=== PATIENT | male | born 1980 | race Caucasian/White ===

== ENCOUNTER 2020-05-28 08:24 | Outpatient (REF) | payer OTHER, SELFPAY ==
--- NOTE | 2020-05-28 | US_ITS ---
EXAMINATION: US RETROPERITONEAL LIMITED (RENAL ONLY) CLINICAL INFORMATION: Abdominal pain. History of urinary calculi. COMPARISON: CT abdomen and pelvis 01/15/2014. Ultrasound abdomen 05/25/2010. TECHNIQUE: Real-time imaging of the kidneys. FINDINGS: RIGHT KIDNEY: 12.4 x 6.1 x 6.6 cm (SAG x AP x TRV). The kidney is normal in size, nodular contour, and echogenicity. Renal cortical thickness is normal. No calculi or focal parenchymal lesions. No hydronephrosis. LEFT KIDNEY: 13.5 x 6.1 x 5.8 cm (SAG x AP x TRV). The kidney is normal in size, nodular contour, and echogenicity. Renal cortical thickness is normal. No calculi or focal parenchymal lesions. No hydronephrosis. US/US renal BI IMPRESSION: Bilateral nodular renal contour. No echogenic stones or hydronephrosis.
== END 2020-05-28 08:25 | disposition home or self-care (01) ==
LOC: HO.US 08:24
PROVIDERS: PCP Internal Medicine; Visit Provider Internal Medicine
DX: R10.9 Unspecified abdominal pain (principal); Z87.442 Personal history of urinary calculi
CPT/HCPCS: 76775

== ENCOUNTER 2023-11-29 09:35 | Outpatient (REF) | payer OTHER, SELFPAY ==
[2023-11-29 12:14] LABS: Anion Gap 11 (12-20); Blood Urea Nitrogen 13 mg/dL (9-16); Calcium 9.8 mg/dL (8.4-10.2); Carbon Dioxide 29 mmol/L (22-29); Chloride 101 mmol/L (96-108); Estimated Glomerular Filt Rate > 60; Glucose Random 107 mg/dL (60-115); Potassium 4.2 mmol/L (3.3-5.1); Sodium 137 mmol/L (135-145)
== END 2023-11-29 09:36 | disposition home or self-care (01) ==
LOC: HO.HHCL 09:35
PROVIDERS: Visit Provider Internal Medicine Geriatric Medicine
DX: I10 Essential (primary) hypertension (principal)
CPT/HCPCS: 36415; 80048

== ENCOUNTER 2024-02-28 08:13 | Outpatient (REF) | payer OTHER, SELFPAY ==
[2024-02-28 12:33] LABS: Estimated Average Glucose 123 mg/dL; Hemoglobin A1c % 5.9 % (<6.0)
[2024-02-28 12:37] LABS: Alanine Aminotransferase 45 U/L (0-40); Albumin Level 4.2 g/dL (3.5-5.0); Alkaline Phosphatase 96 U/L (39-117); Anion Gap 11 (12-20); Aspartate Amino Transferase 35 U/L (5-37); Bilirubin Total 0.4 mg/dL (0.0-1.0); Blood Urea Nitrogen 17 mg/dL (9-16); Calcium 9.6 mg/dL (8.4-10.2); Carbon Dioxide 31 mmol/L (22-29); Chloride 102 mmol/L (96-108); Cholesterol 177 mg/dL (<200); Estimated Glomerular Filt Rate > 60; Glucose Random 121 mg/dL (60-115); HDL Cholesterol 30 mg/dL (>40); LDL Cholesterol Calculated 122 mg/dL (<100); Potassium 4.2 mmol/L (3.3-5.1); Sodium 140 mmol/L (135-145); Triglycerides 128 mg/dL (<150)
[2024-02-28 12:38] LABS: TSH reflex Free T4 1.17 uIU/mL (0.32-4.0); Vitamin D 25-OH Total 78.1 ng/mL (>30)
[2024-02-28 13:04] LABS: Reflex LDLD? No
== END 2024-02-28 08:14 | disposition home or self-care (01) ==
LOC: HO.HHCL 08:13
PROVIDERS: Visit Provider Internal Medicine
DX: E66.01 Morbid (severe) obesity due to excess calories (principal); I10 Essential (primary) hypertension; R73.01 Impaired fasting glucose
CPT/HCPCS: 36415; 80053; 80061; 82306; 83036; 84443

== ENCOUNTER 2024-09-07 19:09 | Emergency (ER) | payer OTHER, SELFPAY ==
--- NOTE | ~2024-09-07 | CT_ITS ---
CLINICAL HISTORY: LLQ abdominal pain. ?stone +L CVAT CT abdomen and pelvis without contrast Comparison: None Findings: No consolidation or effusion. Spleen, adrenal glands, pancreas, gallbladder and liver are unremarkable. Multiple nonobstructing small right renal calculi. No right-sided hydronephrosis. Mild left hydroureteronephrosis and mild left perinephric stranding. At both ureterovesical junctions there are punctate 1 mm calcifications. Urinary bladder is decompressed. No bowel obstruction, pneumoperitoneum, or pneumatosis. Pelvic contents unremarkable. No acute fracture. IMPRESSION: 1. Mild left hydroureteronephrosis and 1 mm calcification of the left ureterovesical junction. 2. 1 mm calcification in the right ureterovesical junction, however no right-sided hydroureteronephrosis. This stone could be either impacted in the ureterovesicular junction or dependent in the urinary bladder. This document has been electronically signed by: Brant Jaime MD on 09/07/2024 20:08:47
[2024-09-07 19:13] VITALS: BP 144/79; PULSE 77; RESP 18; TEMP 36.5; O2SAT 95; BMI 42.6
--- NOTE | 2024-09-07 19:13 | ED_ITS ---
HPI - Abdominal Pain General Chief Complaint: Abdominal Pain Stated Complaint: left lower quad pain Time Seen by Provider: 09/07/24 20:30 Related Data Previous Rx's ?Medication ?Instructions ?Recorded tamsulosin 0.4 mg capsule (Flomax) 0.4 mg PO DAILY #7 caps 09/07/24 Allergies Allergy/AdvReac Type Severity Reaction Status Date / Time No Known Allergies Allergy Verified 09/07/24 19:14 [facility] Social History Social History Smoked in Last 30 Days: No Use of substances other than those prescribed or required for medical reasons: No Advance Directives: No Advance Directives Information Provided: No Do you have a plan to hurt others: No Plan Physical Exam ED Vital Signs: BMI result Body Mass Index 42.6 Course Course Course Narrative: This is a Rapid Medical Exam performed in triage by Marina Palmer PA-C. Full HPI, ROS and PE to be performed by primary ED provider. 43-year-old male PMHx renal stones presenting to the ED c/o L sided abdominal pain x1 hr. States pain feels like prior stones. Denies N/V/D, urinary sx, fever, injury PE: abdomen soft w/LLQ ttp, +L CVAT, no rebound or guarding Plan: labs, UA, CTAP Medical Decision Making Lab Data 09/07/24 19:43 09/07/24 19:43 Labs: Lab Results 09/07/24 Range/Units 19:43 WBC 10.5 (4.8-10.8) X10*3/uL RBC 4.90 (4.60-5.80) X10*6/uL Hgb 14.6 (14.0-18.0) g/dl Hct 42.2 (42.0-52.0) % MCV 86.1 (80.0-98.0) fL MCH 29.8 (27.0-33.0) pg MCHC 34.6 (31.0-36.0) g/dl RDW 13.2 (11.0-16.0) % Plt Count 175 (160-400) X10*3/uL MPV 10.4 (9.4-12.4) fL Immature Gran % (Auto) 0.4 (0.0-0.4) % Neut % (Auto) 55.1 (45-73) % Lymph % (Auto) 33.1 (20-40) % [place] % (Auto) 9.2 (2-11) % Eos % (Auto) 1.6 (0-4) % Baso % (Auto) 0.6 (0-2) % Lymph # (Auto) 3.5 (1.2-4.9) X10*3/uL [place] # (Auto) 1.0 (0.1-1.2) X10*3/uL Eos # (Auto) 0.2 (0.0-0.4) X10*3/uL Baso # (Auto) 0.1 (0.0-0.2) X10*3/uL Abs Immat Gran (auto) 0.04 H (0.00-0.03) X10*3/uL Absolute Neuts (auto) 5.8 (2.0-8.3) x10*3/uL Absolute Nucleated RBC 0.000 (0.0-0.012) X10*3/uL Nucleated RBC % (auto) 0.0 (0.0-0.2) /100WBC Sodium 139 (135-145) mmol/L Potassium 3.8 (3.3-5.1) mmol/L Chloride 105 (96-108) mmol/L Carbon Dioxide 24 (22-29) mmol/L Anion Gap 14 (12-20) BUN 17 H (9-16) mg/dL Creatinine 0.79 (0.5-1.4) mg/dL Estim Creat Clear Calc 145.4 Estimated GFR > 60 Random Glucose 104 (60-115) mg/dL Calcium 9.2 (8.4-10.2) mg/dL Magnesium 2.1 (1.6-2.6) mg/dL Total Bilirubin 0.4 (0.0-1.0) mg/dL Direct Bilirubin 0.1 (0.0-0.5) mg/dL AST 30 (5-37) U/L ALT 46 H (0-40) U/L Alkaline Phosphatase 94 (39-117) U/L Total Protein 7.3 (6.5-8.0) g/dL Albumin 4.2 (3.5-5.0) g/dL Lipase 13 (8-78) U/L Medications Administered Discontinued Medications Generic Name Dose Route Start Last Admin Trade Name Freq PRN Reason Stop Dose Admin Sodium Chloride 1,000 mls @ 999 mls/hr 09/07/24 20:30 09/07/24 21:40 Ns IV 09/07/24 21:30 Infused .Q1H1M PRAMOD Infusion Ketorolac Tromethamine 15 mg 09/07/24 20:30 09/07/24 20:39 Ketorolac Tromethamine 15 Mg/Ml Vial IVPUSH 09/07/24 20:31 15 mg ONCE ONE Administration Morphine Sulfate 4 mg 09/07/24 20:30 09/07/24 20:39 Morphine Sulfate 4 Mg/Ml Cartridge IVPUSH 09/07/24 20:31 4 mg ONCE ONE Administration Protocol Tamsulosin HCl 0.4 mg 09/07/24 20:30 09/07/24 21:38 Tamsulosin Hcl 0.4 Mg Capsule PO 09/07/24 20:31 0.4 mg ONCE ONE Administration Discharge Plan Discharge Clinical Impression: Colic, ureteral Patient Disposition: Home, Self-Care Instructions: Renal Colic (ED) Additional Instructions: DISCHARGE DIAGNOSES: Kidney stones bilaterally HISTORY OF PRESENTATION: severe flank pain and lower abdominal [facility] EMERGENCY DEPARTMENT COURSE,TESTS, TREATMENTS: While in the ED today you had a CT that showed 2 small kidney stones obstructing just as the ureter tube approaches the bladder. There was no associated infection or other complication your pain improved after IV medications and IV fluids. DISCHARGE MEDICATIONS: [We have made no changes to your regular medication regimen], We have prescribed you Flomax which is a medication that can relax the ureter tubes and help your body passed the stones on their own. The stones are very small and should pass FOLLOW-UP: Call your primary or general physician soon as possible to discuss your symptoms, your ED visit and to discuss follow up plans call your primary doctor for follow-up INSTRUCTIONS & RETURN PRECAUTIONS: If any symptoms change first call your primary physician, if it is after-hours your primary doctors office should have a provider public relations account executive you can speak with. If the symptoms are severe or very concerning to you then call 911 or return to the ED. return back here if you are unable to urinate, have prashant red blood persistently in your urine, high fevers or severe pain that when improved. You can take ibuprofen 600 mg every 6 hours for the next 2-3 days drink plenty of fluids and rest Juan Luis Malhotra MD Emergency Physician [facility] Prescriptions: New tamsulosin [Flomax] 0.4 mg capsule 0.4 mg PO DAILY Qty: 7 0RF Interventions: ED Discharge Assessment Last Done: 09/07/24 23:06 Discharge Date/Time: 09/07/24 23:08 Print Language: [place] Verdean
[2024-09-07 19:51] LABS: MANUAL DIFF FLAG NO
[2024-09-07 19:52] LABS: Basophils Absolute Auto 0.1 X10*3/uL (0.0-0.2); Basophils Percent Auto 0.6 % (0-2); Eosinophils Absolute Auto 0.2 X10*3/uL (0.0-0.4); Eosinophils Percent Auto 1.6 % (0-4); Hematocrit 42.2 % (42.0-52.0); Hemoglobin 14.6 g/dl (14.0-18.0); Imm Gran Abs Auto 0.04 X10*3/uL (0.00-0.03); Imm Gran Pct Auto 0.4 % (0.0-0.4); Lymphocytes Absolute Auto 3.5 X10*3/uL (1.2-4.9); Lymphocytes Percent Auto 33.1 % (20-40); Mean Corpuscular HGB Conc 34.6 g/dl (31.0-36.0); Mean Corpuscular Hemoglobin 29.8 pg (27.0-33.0); Mean Corpuscular Volume 86.1 fL (80.0-98.0); Mean Platelet Volume 10.4 fL (9.4-12.4); Monocytes Percent Auto 9.2 % (2-11); Neutrophils Absolute Auto 5.8 x10*3/uL (2.0-8.3); Neutrophils Percent Auto 55.1 % (45-73); Platelet Count 175 X10*3/uL (160-400); Red Cell Distribution Width 13.2 % (11.0-16.0); White Blood Count 10.5 X10*3/uL (4.8-10.8)
[2024-09-07 20:05] LABS: Alanine Aminotransferase 46 U/L (0-40); Albumin Level 4.2 g/dL (3.5-5.0); Alkaline Phosphatase 94 U/L (39-117); Anion Gap 14 (12-20); Aspartate Amino Transferase 30 U/L (5-37); Bilirubin Direct 0.1 mg/dL (0.0-0.5); Bilirubin Total 0.4 mg/dL (0.0-1.0); Blood Urea Nitrogen 17 mg/dL (9-16); Calcium 9.2 mg/dL (8.4-10.2); Carbon Dioxide 24 mmol/L (22-29); Chloride 105 mmol/L (96-108); Creatinine Clr Calc Pharmacy 145.4; Estimated Glomerular Filt Rate > 60; Glucose Random 104 mg/dL (60-115); Lipase 13 U/L (8-78); Magnesium 2.1 mg/dL (1.6-2.6); Potassium 3.8 mmol/L (3.3-5.1); Sodium 139 mmol/L (135-145); Total Protein 7.3 g/dL (6.5-8.0)
--- NOTE | 2024-09-07 20:15 | PC.NURSE ---
pt a&ox4, respirations even and unlabored. pt reporting sudden onset of left lower quadrant pain starting 2 hours ago. reports nausea and vomiting. denies blood in vomit. pt reports he has not been around anyone who has been sick. 18G placed in left ac. pt actively vomiting at this time. provider aware.
[2024-09-07 20:39] VITALS: RESP 20
[2024-09-07] MEDS: Ketorolac Tromethamine 15 MG/ML VIAL IVPUSH (20:39)
[2024-09-07] MEDS: 0.9 % Sodium Chloride 1,000 ML 999 ML IV (20:39)
[2024-09-07] MEDS: Morphine Sulfate 4 MG/ML CARTRIDGE IVPUSH (20:39)
[2024-09-07] MEDS: Tamsulosin HCL 0.4 MG CAPSULE PO (21:38)
--- NOTE | 2024-09-07 21:39 | PC.NURSE ---
pt able to tolerate PO at this time, pt medicated per mar
[2024-09-07 22:42] VITALS: BP 100/60; PULSE 73; RESP 18; TEMP 36.9; O2SAT 95
[2024-09-07 23:06] VITALS: BP 100/60; PULSE 73; RESP 18; TEMP 36.9; O2SAT 95
== END 2024-09-07 23:08 | disposition home or self-care (01) ==
PROVIDERS: Physician Assistant; Emergency Provider Emergency Medicine; PCP Internal Medicine
DX: N13.2 Hydronephrosis with renal and ureteral calculous obstruction (principal); R10.32 Left lower quadrant pain
CPT/HCPCS: 36415; 74176; 80048; 80076; 83690; 83735; 85025; 96361; 96374; 96375; 99285; J1885; J2270

== ENCOUNTER → 2024-09-07 19:15 | Outpatient (BNV) | payer MEDICAID, SELFPAY | PROVIDERS: Emergency Provider Emergency Medicine; PCP Internal Medicine; Visit Provider Radiology Diagnostic Radiology | DX: N13.2 Hydronephrosis with renal and ureteral calculous obstruction (principal) | CPT/HCPCS: 74176 ==

== ENCOUNTER 2025-02-06 08:51 | Outpatient (REF) | payer MEDICAID, SELFPAY ==
--- OUTSIDE RECORDS SUMMARY | 2020-03-13 10:02 | XMS_ITS | Continuity of Care Document ---
Author Organization [facility] Address [address] [place] [address] Phone Care Team Providers Care Director Erp Name Role Phone Silver Gerber MD Unavailable Unavailable Allergies, Adverse Reactions, Alerts Substance Reaction Status Criticality No Known Allergies Active No Inform ation Problems Condition Type Effective Dates (start - stop) Clini terrie Status Comments No Known Problems Advance Directives Directive Yes / No Effective Date File Name No Information Encounters Encounter Description Practice Location Reason(s) For Visit Diagnoses Date Provider [facility], [address] [place] [address], [address], tel:[phone] [facility] No Information Zabrina Sheppard. [address], [id number], [place]. tel:[phone] [facility], [address] [place] [address], [id number], tel:[phone] [facility] COVID Testing (chief complaint) Body mass index (BMI) 35.0-35.9, adultEncounter for screening for other disorderEncounter for screening for other viral diseases Nicci Raymundo. [address], [id number], [place]. tel:[phone] Family History Family Member Type Diagnosis Age At Onset No Information Payers Payer name Insurance type Covered alliance party ID Authoriza tion(s) No Information Social History Type Description Quantity Date Captured Comments Alcohol Use Details Unknown Caffeine Use Details Unknown Tobacco Use Status No Information Smoking Status No Information Sex Male Sexual Orientation Choose not to disclose Gender Identity Male Chief Complaint And Reason For Visit No Information Plan Of Treatment Date Type Action Status Goal Lipid panel. Due on due Goal Alcohol/chemical dependency screening. Due on due Goal Depression screening. Due on due Goal Influenza vaccine. Due on due Goal Tdap. Due on due Goal Social Determinations of Hea lth. Due on due Goal Tdap. Due on due Goal Influenza vaccine. Due on due Goal Alcohol/chemical dependency screening. Due on due Goal Lipid panel. Due on due Goal Depression screening. 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 He denies any exposure, no symptoms. There is no one at the company that has had COVID. Occasional cough due to environment that he works in. The cough is not new. No fever, upset stomach, headache, sore throat.He said that he feels fine today. He said that he does wear a mask all the time. He cannot speak Ug[place]an. COVID Testing PT. work is requ esting COVID testing. [employer] used [employer] Segura Instructions Date Instruction Additional Infor belem I will call you when the COVID test is back, it may take several days. You cannot go back to work until you know the test is negative/you don't have. . In the meantime, you will need to stay home as well as your family. Continue to wear a mask. If you have any issues/problems-call me here. Related to Encounter for screening for other viral diseases BMI:Underweight: Bel ow 18.5; Normal: 18.5 2 4.9; Overweight: 25.0 2 9.9, Obesity: 30.0 and Above BMI is a useful measure of overweight and obesity. It is calculated from your height and weight. BMI is an estimate of body fat and a good gauge of your risk for diseases that can occur with more body fat. The higher your BMI, the higher your risk for certain diseases such as heart disease, high blood pressure, type 2 diabetes, gallstones, breathing problems, and certain cancers. Although BMI can be used for most men and women, it does have some limits: I t may overestimate body fat in athletes and others who have a muscular build. I t may underestimate body fat in older persons and others who have lost muscle. Reaching and maintaining a healthy weight is important for overall health and can help you prevent and control many diseases and conditions.http://www.nhlbi.nih.gov/he alth/educational/lose_wt/risk.htm Related to Body mass index (BMI) 35.0-35.9, adult Lifestyle education regarding di et Related to Body mass index (BMI) 35.0-35.9, adult Giving encouragement to exercise Related to Body mass index (BMI) 35.0-35.9, adult Assessments Type Assessment Date No Information
--- OUTSIDE RECORDS SUMMARY | 2025-02-06 09:09 | XMS_ITS | Encounter Summary ---
Author Organization [facility] [facility] Address [address] [place] [address] Care Team Providers Care Butcher Apprentice Name Role Phone Sofia Pineda MD Primary Care Provider + Encounter Details Date Type Department Care Team (Latest Contact Info) Description 10/18/2019 Abstract [facility] Dental, Provider, DDS Social History Tobacco Use Types Packs/Day Years Used Date Smoking Tobacco: Never Assessed Sex and Gender Information Value Date Recorded Sex Assigned at Male 06/06/2022 10:18 AM EDT Legal Sex Male 10:18 AM EDT Gender Identity Male 06/06/2022 10:18 AM EDT Sexual Orientation Straight 06/06/2022 10 :18 AM EDT documented as of this encounter Plan of Treatment Upcoming Encounters Date Type Department Care Team ( st Contact Info) Description 03/04/2025 10:45 AM EDT Office Visit [facility] [address] [place] [id number] Sofia Pineda MD [address] [place] [address] 05/01/2025 1:00 PM EDT Clinical Support [facility] [address] [place] [phone] Simone Meeks, KENNETH [address] [place] [address] documented as of this encounter Visit Diagnoses Not on filedocumented in this encounter Care Teams Butcher Apprentice Relationship Specialty Start Date End Date Sofia Pineda MD [address] [place] [address] PCP - General Family Medicine 07/13/16 documented as of this encounter
[2025-02-06 11:44] LABS: ~Hepatitis A Antibody IgG 6.42 S/CO (0.00-0.99)
[2025-02-06 11:47] LABS: HBS Num1 28.73 mIU/mL (0-7.99); HBc Num1 0.09 S/CO (0.00-0.79); HBsAGNum1 0.34 S/CO (0.00-0.99); Hepatitis B Surface Antigen Negative (Negative); ~HepC Num1 0.10 S/CO (0.00-0.79); ~Hepatitis B Surface Antibody REACTIVE (Nonreactive); ~Hepatitis C Antibody Nonreactive (Nonreactive)
== END 2025-02-06 08:52 | disposition home or self-care (01) ==
LOC: HO.HHCL 08:51
PROVIDERS: PCP Internal Medicine; Visit Provider Family Medicine
DX: Z01.84 Encounter for antibody response examination (principal); Z11.59 Encounter for screening for other viral diseases; F11.20 Opioid dependence, uncomplicated
CPT/HCPCS: 36415; 86704; 86706; 86708; 86803; 87340